=== PATIENT | male | born 1965 | race Caucasian/White ===

== ENCOUNTER 2016-12-22 12:44 | Emergency (ER) | payer MEDICAID, OTHER ==
[~2016-12-22] VITALS: Wt 61.0 kg
[2016-12-22] MEDS ORDERED: KETOROLAC 15 MG INJ IM STA (15:33)
[2016-12-22 15:56] LABS: URINE BLOOD (Dip) POC Negative (NEGATIVE)
[2016-12-22] MEDS ORDERED: DIAZEPAM 5 MG TAB PO ONE (16:00)
--- NOTE | 2016-12-22 16:44 | RADRPT ---
PROCEDURE: XR left Shoulder. CLINICAL INDICATION: Left shoulder pain, injury TECHNIQUE: 3 views of the left shoulder are available for review. COMPARISON: None available FINDINGS: There is no evidence of acute fracture. There is mild acromioclavicular osteoarthrosis. Visualize d left lung is clear. The soft tissues are grossly unremarkable. IMPRESSION: 1. No radiographic evidence of acute osseous abnormality. 2. Mild acromioclavicular osteoarthrosis. RPTAT: UU .Bruno Munroe MD, MD Date Time Electronically viewed and signed by .Bruno Munroe MD, on 12/22/2016 16:44 .K/
--- NOTE | 2016-12-22 16:46 | RADRPT ---
PROCEDURE: XR Lumbar Spine. CLINICAL INDICATION: Low back pain TECHNIQUE: 3 images of the lumbar spine were obtained. COMPARISON: No prior studies are available for comparison. FINDINGS: There are 5 non rib-bearing lumbar type vertebral bodies. Vertebral body height and alignment is preserved. There is no radiographic evidence of acute fracture or subluxation. Minimal degenerative disk disease and facet arthrosis at L5-S1 is noted. Paraspinal soft tissues are grossly unremarkable. Limited assessment of the sacroiliac joints is grossly unremarkable. IMPRESSION: 1. No radiographic evidence of acute osseous abnormality of the lumbar spine. 2. Minimal degenerative disk disease and facet arthrosis at L5-S1. RPTAT: UU .Bruno Munroe MD, MD Date Time Electronically viewed and signed by .Bruno Munroe MD, on 12/22/2016 16:45 .K/
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
[2016-12-22] MEDS ORDERED: NAPR-260 PO (17:27)
[2016-12-22] MEDS ORDERED: DIAZ-90 PO (17:27)
[2016-12-22 17:41] VITALS: BP 120/80; PULSE 78; RESP 16
== END 2016-12-22 17:43 | disposition home or self-care (01) ==
LOC: FTE 12:44
DX: S49.92XA Unspecified injury of left shoulder and upper arm, initial encounter (principal); S39.92XA Unspecified injury of lower back, initial encounter; S61.411A Laceration without foreign body of right hand, initial encounter; V13.4XXA Pedal cycle driver injured in collision with car, pick-up truck or van in traffic accident, initial encounter
CPT/HCPCS: 72100; 73030; 81003; 96372; J1885; Z7502; Z7610

== ENCOUNTER 2017-01-10 18:01 | Emergency (ER) | payer MEDICAID ==
[~2017-01-10] VITALS: Ht 162.6 cm; Wt 61.5 kg
[~2017-01-10 18:01] MED LIST: DIAZ-90 PO; NAPR-260 PO
[2017-01-10 18:04] VITALS: Ht 162.6 cm; Wt 61.5 kg
--- NOTE | 2017-01-10 19:33 | RADRPT ---
PROCEDURE: US orbits. CLINICAL INDICATION: Right orbital visual disturbance. TECHNIQUE: High-resolution sonography of the orbits was performed in the axial and sagittal planes . COMPARISON: None. FINDINGS: The right globe is grossly abnormal with a large region of retinal detachment. In addition, there i s extensive hemorrhage within the vitrea adjacent to the detachment. The left globe is normal with no evidence of retinal detachment. The anterior and posterior chamber s are normal with no region of abnormal echogenicity. IMPRESSION: 1. Grossly abnormal right globe with large region of retinal detachment and associated hemorrhage. 2. Normal left globe. Call report: A call report of the findings was made to Leobardo Maier, Physician [employer]ws Solution Architect, on 0 01/10/2017 at 1920 hours. RPTAT: QQ .Raudel Sinclair MD, Date Time Electronically viewed and signed by .Raudel Sinclair MD, MD on 01/10/2017 19:33 .R/
--- NOTE | 2017-01-10 20:09 | ERD ---
ER Documentation Chief Complaint Date/Time DATE: 01/10/17 TIME: 20:07 Chief Complaint BLURRY VISION ON RT EYE AND SEEING BALCK SPOTS X 3 DAYS (LEOBARDO MAIER PA-C) HPI This patient is a 51-year-old male with no significant medical history presenting to the emergency department for right eye vision loss which she woke up with suddenly 3 days ago. The patient states he woke up and he was only able to see the top half of people's faces and everything below that was dark. Patient denies any pain. He has never had these symptoms in the past. Patient denies past medical history. He denies any dizziness, disorientation, fevers, or other symptoms at this time. He wears no contacts or glasses. The patient denies all other symptoms at this time. (LEOBARDO MAIER PA-C) ROS All systems reviewed and are negative except as per history of present illness. (LEOBARDO MAIER PA-C) Medications Home Meds Active Scripts Diazepam* (Valium*) 5 Mg Tablet, 5 MG PO Q8, #10 TAB Prov:CELIA,ELIZABETH 12/22/16 Naproxen* (Naprosyn*) 500 Mg Tablet, 500 MG PO BID Y for PAIN AND/OR INFLAMMATION, #30 TAB Prov:CELIA,ELIZABETH 12/22/16 Allergies Allergies: Coded Allergies: No Known Allergy (Unverified , 01/10/17) PMhx/Soc History of Surgery: Yes (L knee surgery) Anesthesia Reaction: No Hx Neurological Disorder: No Hx Respiratory Disorders: No Hx Cardiac Disorders: No Hx Psychiatric Problems: No Hx Miscellaneous Medical Probl: No Hx Alcohol Use: No Hx Substance Use: No Hx Tobacco Use: No (LEOBARDO MAIER PA-C) FmHx Noncontributory for chief complaint (LEOBARDO MAIER PA-C) Physical Exam Vitals Vital Signs Date Time Temp Pulse Resp B/P Pulse Ox O2 Delivery O2 Flow Rate FiO2 01/10/17 18:04 98.1 77 18 130/61 98 (NELI QUICK MD) Physical Exam Const: The patient is resting comfortably in no acute distress. Head: Atraumatic Eyes: EOMs are intact bilaterally. There is no haziness noted to bilateral eyes. The patient's visual acuity is 0 in the right eye. 20/20 in the left eye. 20/20 bilaterally. ENT: Normal External Ears, Nose and Mouth. Neck: Full range of motion..~ No meningismus. Resp: Clear to auscultation bilaterally Cardio: Regular rate and rhythm, no murmurs Abd: Soft, non tender, non distended. Normal bowel sounds Skin: No petechiae or rashes Back: No midline or flank tenderness Ext: No cyanosis, or edema Neur: Awake and alert Psych: Normal Mood and Affect (LEOBARDO MAIER PA-C) Procedures/[facility] EMERGENCY DEPARTMENT COURSE / MEDICAL DECISION MAKING: This is a 51-year-old male who comes to the emergency room secondary to complaints of vision loss in the right eye. Radiology: PROCEDURE: US orbits. CLINICAL INDICATION: Right orbital visual disturbance. TECHNIQUE: High-resolution sonography of the orbits was performed in the axial and sagittal planes. COMPARISON: None. FINDINGS: The right globe is grossly abnormal with a large region of retinal detachment. In addition, there is extensive hemorrhage within the vitrea adjacent to the detachment. The left globe is normal with no evidence of retinal detachment. The anterior and posterior chambers are normal with no region of abnormal echogenicity. IMPRESSION: 1. Grossly abnormal right globe with large region of retinal detachment and associated hemorrhage. 2. Normal left globe. Call report: A call report of the findings was made to Leobardo Maier, Physician Gis Technician, on 01/10/2017 at 1920 hours. RPTAT: QQ .Raudel Sinclair MD, MD Date Time Electronically viewed and signed by .Raudel Sinclair MD, MD on 01/10/2017 19:33 .R/ CC: LEOBARDO MAIER PA-C The primary diagnosis is retinal detachment of the right eye. I have low suspicion for open angle glaucoma, central retinal artery occlusion, central retinal vein occlusion, ruptured globe, retained foreign body, or other emergent conditions at this time. Discharge: I have discussed the lab results and diagnostic findings with the patient and answered any questions or concerns. The patient was advised that he must follow-up with ophthalmology within 24 hours to avoid losing sight completely. This patient was discussed with Dr. Neli Quick supervising ED physician who agreed with the ED course in full. The patient was advised to followup with their PMD in 1-2 days and to return to the Emergency Department if there are any new or worsening symptoms. The patient understood and agreed with the diagnosis, treatment and plan. The patient is stable for discharge at this time. (LEOBARDO MAIER PA-C) My independent concise history is visual changes of the past 3 days with a feeling of only being able to see half of the field of vision. My pertinent physical exam findings are visual changes. The plan is urgent ophthalmology follow-up within 24 hours for likely laser fixation. If he feels like this starts to worsen he should go immediately to an emergency department which has ophthalmology coverage as we do not have ophthalmology consultation available here at [facility]. The patient has had stable visual loss over the past 3 days and this started 3 days ago. (NELI QUICK MD) Departure Diagnosis: Primary Impression: Retinal detachment Laterality: unspecified laterality Qualified Code: H33.20 - Retinal detachment, unspecified laterality Condition: Fair Patient Instructions: Retinal Detachment Ref[facility]: [facility] Usted se burkett hecho un examen mdico de control que le indica que no est en zev condicin que requiera tratamiento urgente en el Departamento de Emergencia. Un estudio ms profundo y el tratamiento de pedroza condicin pueden esperar sin ningn riesgo hasta que usted sea atendida/o en el consultorio de pedroza mdico o zev cl herb. Es responsabilidad suya arreglar zev matias para el seguimiento del kely. MANEJO DE CONDICIONES NO URGENTES EN EL FUTURO 1) Si usted tiene un mdico de atencin primaria: Usted debera llamar a pedroza mdico de atencin primaria antes de venir al departamento de emergencia. Despus de las horas de consultorio, pedroza doctor o pedroza asociado/a est disponible por telfono. El mdico o enfermero de risa en el servicio telefnico puede asesorarle por kofi medio para atender el problema, o kely contrario se puede programar zev matias. 2) Si usted no tiene un mdico de atencin primaria: Llame al mdico o clnica de referencia que aparece abajo antony las horas de consultorio para hacer zev matias para que le vean. CLINICAS: [facility] [phone] [facility] [phone] [facility] [phone] [place] [id number] [phone] [facility] [phone] [address] [facility]. [phone] [address] [facility]. [facility] () Usted se burkett hecho un examen mdico de control que le indica que no est en zev condicin que requiera tratamiento urgente en el Departamento de Emergencia. Un estudio ms profundo y el tratamiento de pedroza condicin pueden esperar sin ningn riesgo hasta que usted sea atendida/o en el consultorio de pedroza mdico o zev cl herb. Es responsabilidad suya arreglar zev matias para el seguimiento del kely. MANEJO DE CONDICIONES NO URGENTES EN EL FUTURO 1) Si usted tiene un mdico de atencin primaria: Usted debera llamar a pedroza mdico de atencin primaria antes de venir al departamento de emergencia. Despus de las horas de consultorio, pedroza doctor o pedroza asociado/a est disponible por telfono. El mdico o enfermero de risa en el servicio telefnico puede asesorarle por kofi medio para atender el problema, o kely contrario se puede programar zev matias. 2) Si usted no tiene un mdico de atencin primaria: Llame al mdico o condado institucions de referencia que aparece abajo antony las horas de consultorio para hacer zev matias para que le vean. SI USTED NO PUEDE PAGAR PARA DEON UN MEDICO puede ir a: [facility] [address] [place] [address] [facility] [address] [place] [address] [facility] [address] [place] [address] [address] [facility] [address] [place] [address] Additional Instructions: You need to see an core oven tender within 24 hours. Information for all [facility] as below: [id number] [facility] , [place] [address] No mas mejor en 2-3 oneal, regresar. Mas peor en 24 horas, regresear rapidamente. Ir a doctor primario in 5-7 oneal. Usar instrucciones cuando gabbie medicamento. LEOBARDO MAIER PA-C Jan 10, 2017 20:09 NELI QUICK MD Jan 10, 2017 20:21
== END 2017-01-10 19:47 | disposition home or self-care (01) ==
LOC: FTE 18:01
DX: H33.20 Serous retinal detachment, unspecified eye (principal)
CPT/HCPCS: 76536; Z7502

== ENCOUNTER 2017-03-21 16:06 | Emergency (ER) | payer MEDICAID ==
[~2017-03-21] VITALS: Wt 62.0 kg
[2017-03-21] MEDS ORDERED: TRAM50TA2 PO (16:30)
[2017-03-21] MEDS ORDERED: ACYC800T57 PO (16:30)
[2017-03-21] MEDS ORDERED: PRED20TA PO (16:30)
--- NOTE | 2017-03-21 16:37 | ERD ---
ER Documentation Chief Complaint Date/Time DATE: 03/21/17 TIME: 16:36 Chief Complaint FACIAL PAIN FROM POSSIBLE SPIDER BITE. NO DRAINAGE NOTED HPI This 51-year-old male presents with pain in some skin lesions on his left forehead. The pain extends from behind his left ear. He does note some small blisters and bumps and thinks he may have been bitten by an insect. He has no fevers, vomiting, shortness with chest pain. Denies any visual changes or pain in the eye. ROS All systems reviewed and are negative except as per history of present illness. Medications Home Meds Active Scripts Tramadol HCl (Tramadol HCl) 50 Mg Tablet, 50 MG PO Q4 Y for PAIN, #20 TAB Prov:MEGAN LOCKWOOD MD 03/21/17 Acyclovir* (Zovirax*) 800 Mg Tablet, 800 MG PO 5 TIMES DAILY for 7 Days, TAB Prov:MEGAN LOCKWOOD MD 03/21/17 Prednisone* (Prednisone*) 20 Mg Tab, 40 MG PO DAILY for 4 Days, TAB Prov:MEGAN LOCKWOOD MD 03/21/17 Diazepam* (Valium*) 5 Mg Tablet, 5 MG PO Q8, #10 TAB Prov:CELIA,ELIZABETH 12/22/16 Naproxen* (Naprosyn*) 500 Mg Tablet, 500 MG PO BID Y for PAIN AND/OR INFLAMMATION, #30 TAB Prov:CELIA,ELIZABETH 12/22/16 Allergies Allergies: Coded Allergies: No Known Allergy (Unverified , 01/10/17) PMhx/Soc History of Surgery: Yes (L knee surgery) Anesthesia Reaction: No Hx Neurological Disorder: No Hx Respiratory Disorders: No Hx Cardiac Disorders: No Hx Psychiatric Problems: No Hx Miscellaneous Medical Probl: No Hx Alcohol Use: No Hx Substance Use: No Hx Tobacco Use: No Physical Exam Vitals Vital Signs Date Time Temp Pulse Resp B/P Pulse Ox O2 Delivery O2 Flow Rate FiO2 03/21/17 16:12 98.8 93 20 130/68 96 Physical Exam Const: [] Alert, [id number] Head: Atraumatic. There is a erythematous papules and possibly very slight vesicles the left forehead and in a dermatomal distribution in the left side of his face. Eyes: Normal Conjunctiva. Normal sclera and extraocular movements intact. Eyes are José Miguel ENT: Normal External Ears, Nose and Mouth. Neck: Full range of motion..~ No meningismus. Resp: Clear to auscultation bilaterally Cardio: Regular rate and rhythm, no murmurs Abd: Soft, non tender, non distended. Normal bowel sounds Skin: No petechiae or rashes Back: No midline or flank tenderness Ext: No cyanosis, or edema Neur: Awake and alert Psych: Normal Mood and Affect Procedures/MDM Patient presents with signs and symptoms of acute herpes zoster on left side of face. There are no signs or symptoms to suggest involvement. He will be treated with acyclovir, tramadol and a short course of prednisone. Patient is advised to return for visual changes, new or worsening symptoms with primary care doctor this week. The patient was stable with no new complaints during the ER course. Clinically, there is no current evidence to suggest meningitis, sepsis, acute abdomen, pneumonia, acute coronary syndrome, pulmonary embolism, or any other emergent condition appearing to require further evaluation or hospitalization. The patient should certainly return for any new or worsening symptoms per the aftercare instructions. They should otherwise follow-up with her primary care doctor for reevaluation this week. Departure Diagnosis: Primary Impression: Zoster Herpes zoster complications: without complications Qualified Code: B02.9 - Herpes zoster without complication Condition: Stable Patient Instructions: Shingles (Herpes Zoster) Additional Instructions: Cheque otro vez con pedroza doctor primario en el proximo oneal or regresa para mas o nueva simptomas. MEGAN LOCKWOOD MD March 21, 2017 16:37
== END 2017-03-21 17:01 | disposition home or self-care (01) ==
LOC: FTE 16:06
DX: B02.9 Zoster without complications (principal)
CPT/HCPCS: 99284